=== PATIENT | male | born 1985 | race Caucasian/White ===

== ENCOUNTER 2023-01-20 20:13 | Observation (INO) | payer SELFPAY ==
[2023-01-20 20:43] LABS: #Basophils 0.1 thou/uL (0.0-0.2); #Eosinphils 0.8 thou/uL (0.0-0.7); #Monocytes 0.7 thou/uL (0.11-0.59); #Neutrophils 6.5 thou/uL (1.40-6.50); %Basophils 0.8 % (0.0-1.0); %Eosinophils 7.6 % (0.0-10.0); %Lymphocytes 26.4 % (21.0-51.0); %Monocytes 6.3 % (0.0-10.0); %Neutrophils 58.7 % (42.0-75.0); Hematocrit 47.2 % (42.0-52.0); Mean Corpuscular HGB CONC 33.9 g/dL (32.0-36.0); Mean Corpuscular Hemoglobin 28.1 pg (27.0-31.0); Mean Platelet Volume 9.6 fL (7.4-10.4); Platelet Count 342 10x3/uL (130-400); RBC Distribution Width 13.1 % (11.5-14.5); Red Blood Cell (RBC) Count 5.69 mill/uL (4.70-6.10); White Blood Cell (WBC) Count 11.1 10x3/uL (4.8-10.8)
[2023-01-20] MEDS ORDERED: Ipratropium/Albuterol 3 ML NEB ONE ×2 (21:18→22:27)
[2023-01-20 21:38] LABS: SARS-CoV-2 NAA Rapid Test Not Detected (NotDetected)
[2023-01-20] MEDS ORDERED: Magnesium 2 GM/50 ML BAG (IN WATER) ONE (21:52)
[2023-01-20] MEDS ORDERED: Dexamethasone 4 mg/ml Vial ONE (21:52)
[2023-01-20 22:01] LABS: ALT (SGPT) 12 U/L (8-55); AST (SGOT) 19 U/L (5-34); Albumin 4.6 g/dL (3.5-5.0); Alkaline Phosphatase 96 U/L (40-110); Anion Gap 10 mmol/L (10-20); BUN (Urea Nitrogen) 14 mg/dL (8.9-20.6); Bilirubin, Total 0.5 mg/dL (0.2-1.2); Calc. Creatinine Clearance 0 mL/min (70-130); Calcium 10.3 mg/dL (7.8-10.44); Carbon Dioxide 27 mmol/L (22-29); Chloride 103 mmol/L (98-107); Estimated GFR 75; Globulin 3.7 g/dL (2.4-3.5); Glucose 104 mg/dL (70-105); Potassium 3.4 mmol/L (3.5-5.1); Protein, Total 8.3 g/dL (6.0-8.3); Sodium 137 mmol/L (136-145)
[2023-01-20] MEDS ORDERED: LevoFLOXacin 750 mg/D5W 150 ml Premix Bag ONE (22:48)
[2023-01-21 00:43] VITALS: BMI 23.1
[2023-01-21 02:18] LABS: Lactic Acid 2.2 mmol/L (0.5-2.2)
[2023-01-21] MEDS: Sodium Chloride 0.9% 1,000 ML IV SCH ×2 (03:01→11:42)
[2023-01-21] MEDS ORDERED: Ipratropium/Albuterol 3 ML NEB NEB PRN (03:23)
[2023-01-21] MEDS ORDERED: Electrolyte Replacement Protocol 1 EACH FS SCH (03:30)
[2023-01-21] MEDS ORDERED: Acetaminophen 650 MG Suppository PR PRN (03:49)
[2023-01-21] MEDS ORDERED: Ondansetron ODT 4 MG TAB PO PRN (03:49)
[2023-01-21] MEDS ORDERED: Acetaminophen 325 MG TAB PO PRN (03:49)
[2023-01-21] MEDS ORDERED: Ondansetron PF 4 MG/2 ML Vial IVP PRN (03:49)
[2023-01-21 05:04] LABS: #Monocytes 0.1 thou/uL (0.11-0.59); #Neutrophils 4.5 thou/uL (1.40-6.50); %Basophils 0.4 % (0.0-1.0); %Eosinophils 0.2 % (0.0-10.0); %Lymphocytes 16.4 % (21.0-51.0); %Monocytes 1.8 % (0.0-10.0); Hematocrit 43.2 % (42.0-52.0); Hemoglobin 14.5 g/dL (14.0-18.0); Mean Corpuscular HGB CONC 33.6 g/dL (32.0-36.0); Mean Corpuscular Hemoglobin 28.5 pg (27.0-31.0); Mean Corpuscular Volume 84.9 fl (78.0-98.0); Mean Platelet Volume 9.6 fL (7.4-10.4); Platelet Count 322 10x3/uL (130-400); RBC Distribution Width 13.1 % (11.5-14.5); Red Blood Cell (RBC) Count 5.09 mill/uL (4.70-6.10); White Blood Cell (WBC) Count 5.5 10x3/uL (4.8-10.8)
[2023-01-21 05:32] LABS: Anion Gap 11 mmol/L (10-20); BUN (Urea Nitrogen) 15 mg/dL (8.9-20.6); Calc. Creatinine Clearance 111 mL/min (70-130); Calcium 9.1 mg/dL (7.8-10.44); Carbon Dioxide 23 mmol/L (22-29); Chloride 105 mmol/L (98-107); Estimated GFR 88; Glucose 189 mg/dL (70-105); Magnesium 2.1 mg/dL (1.6-2.6); Sodium 135 mmol/L (136-145)
[2023-01-21] MEDS: Ipratropium/Albuterol 3 ML NEB NEB SCH ×3 (07:35→14:13)
[2023-01-21 12:55] VITALS: BP 125/73; TEMP 98.3
== END 2023-01-21 15:25 | disposition home or self-care (01) ==
LOC: ERS 20:13 → ERHOLD 23:27 → T4-B 01-21 02:49
PROVIDERS: ADMIT Student in an Organized Health Care Education/Training Program; ATTEND Internal Medicine
DX: S06.9XAA Unspecified intracranial injury with loss of consciousness status unknown, initial encounter (principal); J45.901 Unspecified asthma with (acute) exacerbation; D72.829 Elevated white blood cell count, unspecified; E87.20 Acidosis, unspecified; E87.6 Hypokalemia; Z88.8 Allergy status to other drugs, medicaments and biological substances; Z20.828 Contact with and (suspected) exposure to other viral communicable diseases; X58.XXXA Exposure to other specified factors, initial encounter
CPT/HCPCS: 36415; 71045; 80048; 80053; 83605; 83735; 83880; 85025; 87040; 93005; 94640; 96365; 96366; 96367; 96375; G0378; J1100; J1956; J3475; J7050; J7620

== ENCOUNTER 2023-05-26 00:23 | Emergency (ER) | payer OTHER, SELFPAY ==
[2023-05-26 01:28] LABS: #Basophils 0.1 thou/uL (0.0-0.2); #Eosinphils 1.4 thou/uL (0.0-0.7); #Monocytes 1.2 thou/uL (0.11-0.59); #Neutrophils 7.3 thou/uL (1.40-6.50); %Basophils 0.6 % (0.0-1.0); %Eosinophils 11.3 % (0.0-10.0); %Lymphocytes 19.8 % (21.0-51.0); %Monocytes 9.6 % (0.0-10.0); %Neutrophils 58.5 % (42.0-75.0); Hematocrit 43.6 % (42.0-52.0); Hemoglobin 14.4 g/dL (14.0-18.0); Mean Corpuscular Hemoglobin 28.5 pg (27.0-31.0); Mean Corpuscular Volume 86.2 fl (78.0-98.0); Mean Platelet Volume 9.1 fL (7.4-10.4); Platelet Count 415 10x3/uL (130-400); RBC Distribution Width 12.9 % (11.5-14.5); Red Blood Cell (RBC) Count 5.06 mill/uL (4.70-6.10); White Blood Cell (WBC) Count 12.5 10x3/uL (4.8-10.8)
[2023-05-26 01:59] LABS: ALT (SGPT) 10 U/L (8-55); AST (SGOT) 19 U/L (5-34); Albumin 4.2 g/dL (3.5-5.0); Alkaline Phosphatase 90 U/L (40-110); Anion Gap 13 mmol/L (10-20); BUN (Urea Nitrogen) 24 mg/dL (8.9-20.6); Bilirubin, Total 0.2 mg/dL (0.2-1.2); Calc. Creatinine Clearance 0 mL/min (70-130); Calcium 9.2 mg/dL (7.8-10.44); Carbon Dioxide 27 mmol/L (22-29); Chloride 101 mmol/L (98-107); Estimated GFR 75; Globulin 3.2 g/dL (2.4-3.5); Glucose 96 mg/dL (70-105); Potassium 4.4 mmol/L (3.5-5.1); Protein, Total 7.4 g/dL (6.0-8.3); Sodium 137 mmol/L (136-145)
[2023-05-26] MEDS ORDERED: methylPREDNISolone Sod Succ/PF 125 MG/2 ML VIAL ONE (02:31)
[2023-05-26] MEDS ORDERED: Ipratropium/Albuterol 3 ML NEB ONE (02:31)
[2023-05-26] MEDS ORDERED: Albuterol 2.5 MG (0.5 mL) NEB ONE (02:31)
[2023-05-26 02:38] LABS: Troponin I Less than 0.010 ng/mL (< 0.028)
[2023-05-26] MEDS ORDERED: Iopamidol 370 76% 100 ML VIAL ONE (09:14)
== END 2023-05-26 04:21 | disposition home or self-care (01) ==
LOC: ERS 00:23
DX: K52.9 Noninfective gastroenteritis and colitis, unspecified (principal); K92.2 Gastrointestinal hemorrhage, unspecified; J45.901 Unspecified asthma with (acute) exacerbation
CPT/HCPCS: 36415; 71045; 71275; 74177; 80053; 84484; 85025; 86850; 86900; 86901; 93005; 94640; 96361; 96374; J2930; J7611; J7620; Q9967